=== PATIENT | male | born 1980 | race Caucasian/White ===

== ENCOUNTER 2016-06-03 18:52 | Emergency (ER) | payer BC, OTHER ==
[2016-06-03] MEDS ORDERED: cefTRIAXone\\ROCEPHIN 1 GM VIAL ONE (20:12)
--- NOTE | 2016-06-03 20:54 | PICIS ---
[facility] EMERGENCY RECORD TRIAGE (FriJun 03, 2016 19:20 KMOR) TRIAGE NOTES: Abscess to right forearm, redness increasing over past 3 days. (FriJun 03, 2016 19:20 KMOR) PATIENT: NAME: Jan Aleman, AGE: 35, GENDER: male, : Fri1980, TIME OF GREET: FriJun 03, 2016 18:53, PREFERRED LANGUAGE: Trinidadian, ETHNICITY: Not or , ECODE BILLING MAP: [facility], SSN: [id number], Zip Code: [address], KG WEIGHT: [phone], PHONE: , , , PERSON ID: [id number], PCP: Jean Marie TINSLEY KRISTI. (FriJun 03, 2016 19:20 KMOR) PAYMENT: [employer]mit[employer]. (19:34) COMPLAINT: Abscess. (FriJun 03, 2016 19:20 KMOR) ADMISSION: URGENCY: 3 Urgent, ADMISSION SOURCE: Home, TRANSPORT: CAR, BED: WAIT. (FriJun 03, 2016 19:20 KMOR) ASSESSMENT: Assessment: A&OX4. RR EVEN AND UNLABORED., Symptoms began 3 days ago. (19:24 KMOR) PAIN: Patient complains of pain described as, dull, on a scale 0-10 patient rates pain as 5, Location RIGHT FOREARM. (19:24 KMOR) SIRS SCORING: Heart Rate 55-109 (0), Temp range 96.8-101.1 (0), respiratory rate 12-24 (0), Mental Status altered: no (0), Infection or Suspected Infection: No. (19:24 KMOR) TRIAGE SCREENING: Patient denies suicidal ideation, Patient denies presence of domestic violence. (19:24 KMOR) PROVIDERS: TRIAGE NURSE: Hermelinda Ruelas RN. (FriJun 03, 2016 19:20 KMOR) VITAL SIGNS: BP 87/, Pulse 76, Resp 18, Temp 98.4, (Oral), Pain 5, O2 Sat 98, on Room Air, Time 06/03/2016 19:22. (19:22 KMOR) PREVIOUS VISIT ALLERGIES: No Known Drug Allergies. (FriJun 03, 2016 19:20 KMOR) No Known Drug Allergies. (19:24 KMOR) KNOWN ALLERGIES No Known Drug Allergies CURRENT MEDICATIONS lisinopril: TABLET : Strength - 10 mg : ORAL Patient Dose: unk mg Oral once a day. (19:21 KMOR) traZODone: TABLET : Strength - 50 mg : ORAL Patient Dose: 50 mg Oral once a day. (19:31 KMOR) VITAL SIGNS VITAL SIGNS: BP: 87/, Pulse: 76, Resp: 18, Temp: 98.4 (Oral), Pain: 5, O2 sat: 98 on Room Air, Time: 06/03/2016 19:22. (19:22 KMOR) BP: 119/72, Pulse: 86, Resp: 18, Temp: 98.6 (Oral), Pain: 0, O2 sat: 95 on Room Air, Time: 06/03/2016 20:04. (20:04 CVAN) NURSING ASSESSMENT: SKIN (19:25 KMOR) &a-1R&a+25V*p+0X*j1306Q*c202B*c15G*c2P*p-0X&a-25V&a+1R Name: Jan Aleman : 1980 M35 MedRec: [id number] AcctNum: [id number] Prepared: FriJun 04, 2016 09:29 by Interface Page 1 of 6 pMD [facility] EMERGENCY RECORD CONSTITUTIONAL: Patient arrives ambulatory, Gait steady, History obtained from patient, Patient appears comfortable, Patient cooperative, Patient alert, Oriented to person, place and time, Skin warm, Skin dry, Skin normal in color, Mucous membranes pink, Mucous membranes moist, Patient is well-groomed, Patient complains of Redness to right forearm, Redness to right forearm x 3 days, indurated area in center. Pain and warmth to touch. PAIN: dull pain, right forearm, on a scale 0-10 patient rates pain as 5. SKIN: Skin assessment findings include skin warm, Skin dry, Skin normal in color, Inspection findings include lesion(s), to right forearm, Description: indurated area, Inspection findings include redness, to right forearm, 9in x 4 in, Inspection findings include swelling, to right forearm. NOTES: Patient tolerated procedure well. NURSING PROCEDURE: DISCHARGE NOTE (20:35 MVIL) DISCHARGE: Patient discharged to home, ambulating without assistance, family driving, accompanied by //partner, Summary of Care printed/ provided, Patient requested and was provided an electronic copy of Discharge Instructions, Transition record given to patient, Discharge instructions given to patient, Prescriptions given and instructions on side effects given, Name of prescription(s) given: cleocin and tylenol with codeine, Medication reconciliation form given, Above person(s) verbalized understanding of discharge instructions and follow-up care. BELONGINGS: Belongings and valuables with patient at time of discharge include:. SAFETY: Side rails up, Cart/Stretcher in lowest position, Family at bedside, Call light within reach, Hospital ID band on. NURSING PROCEDURE: NURSE NOTES (20:11 CVAN) NURSES NOTES: Notes: telfa pad placed over wound and wrapped in coban. MEDICATION ADMINISTRATION SUMMARY Drug Name: cefTRIAXone injection, Dose Ordered: 1 g, Route: Intramuscular, Status: Given, Time: 20:28 06/03/2016, Detailed record available in Medication Service section. MEDICATION SERVICE (20:28 [facility] cefTRIAXone injection: Order: cefTRIAXone injection (ceftriaxone sodium) - Dose: 1 g : Intramuscular Ordered by: Patrick Vásquez DO Entered by: Patrick Vásquez DO FriJun 03, 2016 20:08 , Acknowledged by: Susanna Michael RN FriJun 03, 2016 20:23 Documented as given by: Jeri Polanco RN FriJun 03, 2016 20:28 &a-1R&a+25V*p+0X*y5695G*c202B*c15G*c2P*p-0X&a-25V&a+1R Name: Jan Aleman : 1980 M35 MedRec: [id number] AcctNum: [id number] Prepared: FriJun 04, 2016 09:29 by Interface Page 2 of 6 pMD [facility] EMERGENCY RECORD Patient, Medication, Dose, Route and Time verified prior to administration. IM antibiotic, Amount given: 1gm, Correct patient, time, route, dose and medication confirmed prior to administration, Patient advised of actions and side-effects prior to administration, Allergies confirmed and medications reviewed prior to administration, Patient in position of comfort, Side rails up, Cart in lowest position, Family at bedside. HPI ABSCESS (FriJun 04, 2016 09:00 [facility] CHIEF COMPLAINT: Patient presents for evaluation of swelling, Patient presents for evaluation of pain, Patient presents for evaluation of Possible abscess. HISTORIAN: History provided by patient, History provided by patient's family. LOCATION: Symptoms are localized, most severe to Right mid forearm. QUALITY: Pain is dull in nature, described as aching, described as throbbing. SEVERITY: Maximum severity of symptoms moderate, Currently symptoms are mild. TIME COURSE: Gradual onset of symptoms, 3, days priror to arrival, Symptoms are worsening. ASSOCIATED WITH: No associated chills, No associated drainage, No associated fever, No associated nausea, No associated proximal streaking, Associated with warmth. COMPLICATING FACTORS: No complicating factors for wound healing. EXACERBATED BY: Patient's condition exacerbated by nothing. RELIEVED BY: Patient's condition relieved by nothing, Patient's condition relieved by nothing because patient has not tried anything for relief. TETANUS: Tetanus status up to date. ROS (FriJun 04, 2016 09:00 [facility] CONSTITUTIONAL: Negative constitutional review of systems, Historian denies chills, denies fever. EYES: Negative eye review of systems. ENT: Historian denies rhinorrhea, denies sore throat. CARDIOVASCULAR: Historian denies chest pain, denies dyspnea on exertion. RESPIRATORY: Historian denies cough, denies shortness of breath. GI: Negative gastrointestinal review of systems, Historian denies abdominal pain, denies diarrhea, denies nausea, denies vomiting. MUSCULOSKELETAL: Historian denies joint redness, denies joint stiffness, denies joint swelling. Denies any musculoskeletal pain, Historian denies injury. SKIN: Historian reports cellulitis, reports induration, reports skin lesions. NEUROLOGIC: Negative neurologic review of systems, Historian denies focal weakness, denies sensory changes. HEMO/LYMPHATIC: Historian denies abnormal blood clotting, denies easy bruising. &a-1R&a+25V*p+0X*c8259L*c202B*c15G*c2P*p-0X&a-25V&a+1R Name: Jan Aleman Filippo : 1980 M35 MedRec: [id number] AcctN: [id number] Prepared: FriJun 04, 2016 09:29 by Interface Page 3 of 6 pMD [facility] EMERGENCY RECORD PAST MEDICAL HISTORY (19:24 KMOR) MEDICAL HISTORY: , Past medical history includes history of hyperlipidemia, currently being treated, diet, Past medical history includes history of hypertension, Patient is compliant, diet, Past medical history includes neurological disease, Epilepsy, last seizure in 2001. Notes: H/O HTN / high cholesterol, resolved with weight loss, Past medical history includes neurological disease, Epilepsy. MALE SURGICAL HISTORY: Surgical history of orthopedic surgery, scope R knee, Surgical history of tonsillectomy, Date of surgery 2011, Surgical history of vasectomy. PSYCHIATRIC HISTORY: No previous psychiatric history. SOCIAL HISTORY: Patient denies alcohol use, Patient denies drug use, Patient has no smoking history. PHYSICAL EXAM (FriJun 04, 2016 09:00 MBRI) CONSTITUTIONAL: Vital Signs Reviewed, Nursing notes reviewed. HEAD: Head exam included findings of head atraumatic, normocephalic. RESPIRATORY CHEST: Respiratory exam included findings of no respiratory distress, Breath sounds clear, No wheezing, No rales, No rhonchi. CARDIOVASCULAR: Cardiovascular exam included findings of heart rate regular rate and rhythm, Heart sounds normal, Carotids normal. UPPER EXTREMITY: Upper extremity exam included findings of inspection abnormal, See below., Range of motion normal, Motor strength normal, Sensation intact, Radial pulse normal, no cyanosis, no clubbing, no edema. NEURO: Neuro exam findings include patient oriented to person, place and time, Speech normal, Gait normal. SKIN: Skin exam included findings of skin warm, dry, and normal in color, Pt with area of approx. 1-2 cm2 of the mid ant forearm on the right that has a fluctuant region centrally with surrounding erythema of the middle third of the arm and increased warmth. EVENTS TRANSFER: Triage to Emergency Waiting. (FriJun 03, 2016 19:20 KMOR) Emergency Waiting to Emergency Room -03. (19:28 KMOR) Removed from Emergency Emergency Room -03. (20:37 MVIL) O2SAT INTERPRETATION (FriJun 04, 2016 09:00 MBRI) O2SAT: Oxygen saturation interpretation: Normal. DOCTOR NOTES (FriJun 04, 2016 09:00 MBRI) TEXT: Pt appears stable. No findings to suggest sig illness. No indications for sepsis or concerns for bacteremia. The pt can tolerate po meds and is stable for d/c home as hospitalization is not currently necessary. Plan of care discussed with pt and questions &a-1R&a+25V*p+0X*x2090M*c202B*c15G*c2P*p-0X&a-25V&a+1R Name: Jan Aleman : 1980 M35 MedRec: [id number] AcctNum: [id number] Prepared: FriJun 04, 2016 09:29 by Interface Page 4 of 6 pMD [facility] EMERGENCY RECORD answered. Pt was informed of reasons for follow-up and return and they stated understanding. Pt is stable for d/c home at this time. INCISION AND DRAINAGE (FriJun 04, 2016 09:00 MBRI) INCISION AND DRAINAGE: Side and/or site verified, Patient identification confirmed, Sterile procedures observed, Verbal consent obtained, Incision and drainage indicated for cutaneous abscess, There are no contraindications, 1% Lidocaine with epinephrine used, 2 mLs, Incision and drainage of skin abscess, simple, Incision was made over area of fluctuance, Explored for loculations, Irrigated, Packed with sterile gauze, Drained pus, Amount (mLs) 1, After procedure, wound dressed, After procedure, neurovascular status normal, There were no complications, Tetanus status up to date, Patient tolerated the procedure well. PROBLEM LIST No recorded problems DIAGNOSIS (20:10 MBRI) FINAL: PRIMARY: abscess - RIGHT arm, ADDITIONAL: cellulitis - RIGHT arm. DISPOSITION PATIENT: Disposition Type: Discharge, Disposition: *Discharge Home, Condition: Improved. (20:10 MBRI) Patient left the department. (20:37 MVIL) INSTRUCTION (20:11 MBRI) DISCHARGE: ABSCESS, I AND D, CELLULITIS. FOLLOWUP: Jean Marie TINSLEY KRISTI[place] [facility] [place] [id number], [phone], Follow up with Primary Care Physician in 3-4 days. SPECIAL: Please return for any further issues or concerns, we would be happy to see you. We hope you feel better soon. Follow-up with your PCP in 3-4 days for recheck or sooner in the ED for worsening. PRESCRIPTION (20:09 MBRI) acetaminophen-codeine: TABLET : 300 mg-30 mg : ORAL : Quantity: 1 Unit: tab(s) Route: ORAL Schedule: every 4 hours prn Dispense: 20 May substitute. Refills: No Refills . NOTES: No refills. Cleocin capsule: CAPSULE (HARD, SOFT, ETC.) : 150 mg : ORAL : Quantity: 2 Unit: tab(s) Route: ORAL Schedule: 4 times a day Dispense: 56 May substitute. Refills: No Refills . NOTES: ^s=No refills &a-1R&a+25V*p+0X*o4714K*c202B*c15G*c2P*p-0X&a-25V&a+1R Name: Jan Aleman : 1980 M35 MedRec: [id number] AcctNum: [id number] Prepared: FriJun 04, 2016 09:29 by Interface Page 5 of 6 pMD [facility] EMERGENCY RECORD No refills. IMAGING *DISCHARGE INSTRUCTIONS RECEIPT: Image captured from scanner. (20:36 MVIL) *SUPPLY CHARGE SHEET: Image captured from scanner. (20:37 MVIL) ADMIN DIGITAL SIGNATURE: KRISTIAN Ruelas Krista. (FriJun 04, 2016 07:17 KMOR) DO Vásquez Matthew. (FriJun 04, 2016 09:22 MBRI) Walls: CVAN=KRISTIAN Escalante, Kathrin KMOR=KRISTIAN Ruelas Krista MBRI=DO Vásquez Matthew MVIL=KRISTIAN Polanco, Jeri &a-1R&a+25V*p+0X*y9119N*c202B*c15G*c2P*p-0X&a-25V&a+1R Name: Jan Aleman : 1980 M35 MedRec: [id number] AcctNum: [id number] Prepared: FriJun 04, 2016 09:29 by Interface Page 6 of 6 pMD MTDD
== END 2016-06-03 20:30 | disposition home or self-care (01) ==
LOC: BURERS 18:52
DX: L02.413 Cutaneous abscess of right upper limb (principal); L03.113 Cellulitis of right upper limb; E78.5 Hyperlipidemia, unspecified; I10 Essential (primary) hypertension; E78.00 Pure hypercholesterolemia, unspecified
CPT/HCPCS: 10060; 96372; J0696

== ENCOUNTER 2016-07-31 11:00 | Outpatient (CLI) | payer BC ==
[2016-07-31 17:00] LABS: #Basophils 0.1 thou/uL (0.0-0.2); #Eosinphils 0.3 thou/uL (0.0-0.7); #Lymphocytes 2.3 thou/uL (1.20-3.40); #Monocytes 0.8 thou/uL (0.11-0.59); #Neutrophils 6.8 thou/uL (1.40-6.50); %Basophils 1.1 % (0.0-1.0); %Eosinophils 3.3 % (0.0-10.0); %Lymphocytes 22.4 % (21.0-51.0); %Monocytes 7.7 % (0.0-10.0); %Neutrophils 65.5 % (42.0-75.0); Hemoglobin 14.7 g/dL (14.0-18.0); Mean Corpuscular HGB CONC 33.3 g/dL (32.0-36.0); Mean Corpuscular Hemoglobin 29.4 pg (27.0-31.0); Mean Corpuscular Volume 88.4 fl (80.0-94.0); Platelet Count 258 thou/uL (130-400); RBC Distribution Width 12.8 % (11.5-14.5); White Blood Cell (WBC) Count 10.4 thou/uL (4.8-10.8)
[2016-07-31 17:05] LABS: ALT (SGPT) 23 U/L (0-55); AST (SGOT) 17 U/L (5-34); Albumin 4.1 g/dL (3.5-5.0); Alkaline Phosphatase 75 U/L (40-150); Anion Gap 16 mmol/L (10-20); BUN (Urea Nitrogen) 13 mg/dL (8.9-20.6); Bilirubin, Total 0.6 mg/dL (0.2-1.2); Calc. Creatinine Clearance 0 mL/min (70-130); Calcium 9.2 mg/dL (7.8-10.44); Carbon Dioxide 22 mmol/L (22-29); Cardiac Risk 4.9 (Less than 4.5); Chloride 108 mmol/L (98-107); Cholesterol 195 mg/dL (< 200 Desired); Estimated GFR-MDRD Greater than 90; Globulin 2.5 g/dL (2.4-3.5); Glucose 82 mg/dL (70-105); HDL Cholesterol 40 mg/dL (>60 Neg Risk); LDL Cholesterol, Calculated 137 mg/dL; Potassium 4.7 mmol/L (3.5-5.1); Protein, Total 6.6 g/dL (6.0-8.3); Sodium 141 mmol/L (136-145); Triglycerides 91 mg/dL (Less than 150)
== END 2016-07-31 11:01 | disposition home or self-care (01) ==
LOC: LABLEX 11:00
PROVIDERS: ATTEND Family Medicine
DX: E78.5 Hyperlipidemia, unspecified (principal); E66.9 Obesity, unspecified; I10 Essential (primary) hypertension
CPT/HCPCS: 80053; 80061; 84443; 85025